=== PATIENT | male | born 1975 | race Caucasian/White ===

== ENCOUNTER 2023-09-08 08:45 | Inpatient (IN) | payer OTHER ==
[2023-09-08 09:07] VITALS: BMI 30.9
[2023-09-08] MEDS ORDERED: SODIUM CHLORIDE 0.9% 1000 ML INFUS.BAG IV ONE (09:34)
[2023-09-08] MEDS ORDERED: ACETAMINOPHEN 1000 MG/100 ML BAG IVPB ONE (09:34)
[2023-09-08] MEDS ORDERED: ACETAMINOPHEN INJECTION 100 ML IVPB ONE ×2 (10:00→23:24)
[2023-09-08 10:32] LABS: PH,URINE 8.5 (5.0-8.0); URINE APPEARANCE CLEAR; URINE BILIRUBIN NEGATIVE (NEGATIVE); URINE COLOR YELLOW; URINE GLUCOSE (UA) NEGATIVE (NEGATIVE); URINE KETONE NEGATIVE (NEGATIVE); URINE LEUK ESTERASE NEGATIVE (NEGATIVE); URINE NITRITE NEGATIVE (NEGATIVE); URINE PROTEIN NEGATIVE (NEGATIVE); URINE UROBILINOGEN 0.2 mg/dL (0.2-1.0)
[2023-09-08 10:33] LABS: BASO % 0.2 % (0-2.0); EOS % 0.3 % (0-4.5); HEMATOCRIT 39.6 % (35.4-49); HEMOGLOBIN 13.3 GM/dL (11.7-16.9); MCH 28.7 pg (25.7-33.7); MCHC 33.6 g/dl (32.0-35.9); MEAN CELL VOLUME 85.6 fl (80-96); MEAN PLT VOLUME 7.3 fl (7.5-11.1); MONO % 9.7 % (3.8-10.2); NEUT % 78.8 % (42.8-82.8); PLATELET COUNT 250 10^3/uL (134-434); RBC 4.63 M/mm3 (4.00-5.60); RDW 13.8 % (11.9-15.9); WHITE BLOOD COUNT 12.4 K/mm3 (4.0-10.0)
[2023-09-08 11:04] LABS: POTASSIUM 3.6 mmol/L (3.5-5.1)
[2023-09-08 11:06] LABS: CALCIUM 7.9 mg/dL (8.5-10.1)
[2023-09-08 11:08] LABS: ALBUMIN 3.6 g/dl (3.4-5.0); BLOOD UREA NITROGEN 14.4 mg/dL (7-18)
[2023-09-08 11:10] LABS: CREATININE 0.9 mg/dL (0.55-1.3)
[2023-09-08 11:11] LABS: TOT PROT 6.7 g/dl (6.4-8.2)
[2023-09-08 11:13] LABS: BILIRUBIN,TOTAL 0.9 mg/dL (0.2-1)
[2023-09-08] MEDS ORDERED: PIPERACILLIN/TAZOB 2.25 GM 2.25 GM in DEXTROSE 5%-WATER - 50 ML IVPB ONE (14:07)
[2023-09-08] MEDS ORDERED: PIPERACILLIN/TAZOB 2.25 GM 2.25 GM/50 ML BAG IVPB ONE (15:20)
[2023-09-08 15:25] LABS: PROTHROMBIN TIME (PATIENT) 46.2 SEC (9.7-13.0)
[2023-09-08 15:28] LABS: ACTIVATED PTT 55.7 SECONDS (25.2-36.5)
[2023-09-08 15:43] LABS: INR 4.04 (0.83-1.09)
[2023-09-08] MEDS ORDERED: DEXTROSE 5%-0.45% SALINE 1,000 ML IV SCH (17:00)
[2023-09-08] MEDS ORDERED: morphine CARPU-JECT 2 MG/1 ML DISP.SYRIN IVPUSH ONE (18:12)
[2023-09-08] MEDS ORDERED: morphine CARPU-JECT 4 MG/1 ML DISP.SYRIN IVPUSH SCH (18:45)
[2023-09-08] MEDS: ATORVASTATIN CA 10 MG TABLET (FP) PO SCH (22:00)
[2023-09-08] MEDS ORDERED: INSULIN SLIDING SCALE (NOVOLOG) 1 VIAL SQ SCH (22:00)
[2023-09-08] MEDS ORDERED: ATORVASTATIN CA 20 MG TABLET (FP) ONE (22:01)
[2023-09-08] MEDS: INSULIN SLIDING SCALE (NOVOLOG) 1 VIAL SQ SCH (22:11)
[2023-09-08] MEDS: ACETAMINOPHEN 1000 MG/100 ML BAG IVPB PRN (23:31)
[2023-09-09] MEDS: INSULIN SLIDING SCALE (NOVOLOG) 1 VIAL SQ SCH ×4 (06:33→21:11)
[2023-09-09 08:24] LABS: POTASSIUM 3.2 mmol/L (3.5-5.1)
[2023-09-09 08:25] LABS: HEMATOCRIT 37.4 % (35.4-49); HEMOGLOBIN 13.3 GM/dL (11.7-16.9); MCH 29.7 pg (25.7-33.7); MCHC 35.6 g/dl (32.0-35.9); MEAN CELL VOLUME 83.5 fl (80-96); MEAN PLT VOLUME 7.4 fl (7.5-11.1); PLATELET COUNT 228 10^3/uL (134-434); RBC 4.48 M/mm3 (4.00-5.60); RDW 13.6 % (11.9-15.9); WHITE BLOOD COUNT 12.9 K/mm3 (4.0-10.0)
[2023-09-09 08:29] LABS: CALCIUM 7.8 mg/dL (8.5-10.1)
[2023-09-09 08:30] LABS: BLOOD UREA NITROGEN 10.3 mg/dL (7-18); MAGNESIUM 1.8 mg/dL (1.8-2.4)
[2023-09-09 08:33] LABS: CREATININE 0.9 mg/dL (0.55-1.3); PHOSPHOROUS 2.6 mg/dL (2.5-4.9)
[2023-09-09 08:38] LABS: INR 3.26 (0.83-1.09); PROTHROMBIN TIME (PATIENT) 37.4 SEC (9.7-13.0)
[2023-09-09] MEDS: ACETAMINOPHEN 1000 MG/100 ML BAG IVPB PRN (16:37)
[2023-09-09] MEDS ORDERED: ACETAMINOPHEN 1000 MG/100 ML BAG IVPB PRN (20:49)
[2023-09-09] MEDS: ATORVASTATIN CA 10 MG TABLET (FP) PO SCH (21:11)
[2023-09-10] MEDS: INSULIN SLIDING SCALE (NOVOLOG) 1 VIAL SQ SCH ×4 (06:11→21:02)
[2023-09-10] MEDS ORDERED: PIPERACILLIN/TAZOB 3.375 GM 3.375 GM in DEXTROSE 5%-WATER - 50 ML IVPB SCH (10:00)
[2023-09-10 10:26] LABS: BASO % 0.1 % (0-2.0); EOS % 0.1 % (0-4.5); HEMOGLOBIN 12.8 GM/dL (11.7-16.9); LYMPH % 7.6 % (8-40); MCH 28.9 pg (25.7-33.7); MCHC 34.6 g/dl (32.0-35.9); MEAN CELL VOLUME 83.5 fl (80-96); MEAN PLT VOLUME 7.6 fl (7.5-11.1); MONO % 5.1 % (3.8-10.2); NEUT % 87.1 % (42.8-82.8); PLATELET COUNT 227 10^3/uL (134-434); RBC 4.43 M/mm3 (4.00-5.60); WHITE BLOOD COUNT 14.1 K/mm3 (4.0-10.0)
[2023-09-10 10:35] LABS: INR 1.78 (0.83-1.09); PROTHROMBIN TIME (PATIENT) 20.5 SEC (9.7-13.0)
[2023-09-10 10:53] LABS: POTASSIUM 3.1 mmol/L (3.5-5.1)
[2023-09-10 10:56] LABS: BLOOD UREA NITROGEN 11.1 mg/dL (7-18); CALCIUM 7.7 mg/dL (8.5-10.1)
[2023-09-10 10:59] LABS: CREATININE 1.1 mg/dL (0.55-1.3)
[2023-09-10 11:00] LABS: BILIRUBIN,TOTAL 2.3 mg/dL (0.2-1); TOT PROT 6.1 g/dl (6.4-8.2)
[2023-09-10 11:10] LABS: ALBUMIN 2.8 g/dl (3.4-5.0)
[2023-09-10 11:20] LABS: ERYTHROCYTE SEDIMENTATION RATE 89 mm/hr (0-10)
[2023-09-10] MEDS: KCL 10 MEQ IVPB 10 MEQ/100 ML INFUS.BAG IVPB SCH ×2 (12:02→12:45)
[2023-09-10] MEDS ORDERED: POTASSIUM CHLORIDE TABS 10 MEQ TABLET.ER (FP) PO ONE (12:45)
[2023-09-10] MEDS: PIPERACILLIN/TAZOB 3.375 GM 3.375 GM in DEXTROSE 5%-WATER - 50 ML IVPB SCH (17:16)
[2023-09-10] MEDS: ATORVASTATIN CA 10 MG TABLET (FP) PO SCH (21:02)
[2023-09-10] MEDS ORDERED: ACETAMINOPHEN 1000 MG/100 ML BAG IVPB ONE (21:24)
[2023-09-11] MEDS: PIPERACILLIN/TAZOB 3.375 GM 3.375 GM in DEXTROSE 5%-WATER - 50 ML IVPB SCH ×3 (02:13→17:50)
[2023-09-11] MEDS: INSULIN SLIDING SCALE (NOVOLOG) 1 VIAL SQ SCH ×4 (09:10→22:01)
[2023-09-11] MEDS ORDERED: BUPIVACAINE HCL/PF 0.25% (2.5MG/ML) 10 ML VIAL ONE (09:14)
[2023-09-11] MEDS ORDERED: BUPIVACAINE HCL/PF 0.25% (2.5MG/ML) 10 ML VIAL IJ ONE ×2 (09:34→10:14)
[2023-09-11] MEDS ORDERED: PIPERACILLIN/TAZOBACTAM 3.375 GM VIAL IVPB ONE ×3 (09:34→09:58)
[2023-09-11] MEDS ORDERED: ACETAMINOPHEN INJECTION 100 ML IVPB ONE (09:41)
[2023-09-11] MEDS ORDERED: HEPARIN NA (PORCINE) 5,000 UNITS/ML 1ML VIAL ONE (09:41)
[2023-09-11 09:58] LABS: BASO % 0.3 % (0-2.0); EOS % 0.3 % (0-4.5); HEMATOCRIT 38.4 % (35.4-49); LYMPH % 8.9 % (8-40); MCH 28.7 pg (25.7-33.7); MCHC 33.9 g/dl (32.0-35.9); MEAN CELL VOLUME 84.5 fl (80-96); MEAN PLT VOLUME 7.6 fl (7.5-11.1); MONO % 6.8 % (3.8-10.2); NEUT % 83.7 % (42.8-82.8); PLATELET COUNT 256 10^3/uL (134-434); RBC 4.54 M/mm3 (4.00-5.60); RDW 13.5 % (11.9-15.9); WHITE BLOOD COUNT 11.6 K/mm3 (4.0-10.0)
[2023-09-11 09:59] LABS: INR 1.44 (0.83-1.09); PROTHROMBIN TIME (PATIENT) 16.6 SEC (9.7-13.0)
[2023-09-11 10:33] LABS: POTASSIUM 3.5 mmol/L (3.5-5.1)
[2023-09-11 10:37] LABS: ALBUMIN 2.8 g/dl (3.4-5.0); BLOOD UREA NITROGEN 11.4 mg/dL (7-18); CALCIUM 8.2 mg/dL (8.5-10.1)
[2023-09-11 10:40] LABS: CREATININE 0.9 mg/dL (0.55-1.3)
[2023-09-11 10:42] LABS: BILIRUBIN,TOTAL 2.3 mg/dL (0.2-1); TOT PROT 6.6 g/dl (6.4-8.2)
[2023-09-11] MEDS ORDERED: LACTATED RINGERS SOLUTION 1,000 ML IV SCH (11:15)
[2023-09-11] MEDS ORDERED: FENTANYL CITRATE/PF 50 MCG/ML VIAL ONE (11:55)
[2023-09-11] MEDS: ACETAMINOPHEN 1000 MG/100 ML BAG IVPB SCH ×2 (16:56→22:01)
[2023-09-11] MEDS: WARFARIN NA 5 MG TABLET PO SCH (17:51)
[2023-09-11] MEDS: ATORVASTATIN CA 10 MG TABLET (FP) PO SCH (22:03)
[2023-09-12] MEDS: PIPERACILLIN/TAZOB 3.375 GM 3.375 GM in DEXTROSE 5%-WATER - 50 ML IVPB SCH ×3 (01:06→17:39)
[2023-09-12] MEDS: ACETAMINOPHEN 1000 MG/100 ML BAG IVPB SCH ×2 (04:20→11:49)
[2023-09-12] MEDS: INSULIN SLIDING SCALE (NOVOLOG) 1 VIAL SQ SCH ×3 (06:07→16:34)
[2023-09-12] MEDS: oxyCODONE HCL 5 MG TABLET PO PRN ×3 (09:16→21:20)
[2023-09-12 10:24] LABS: BASO % 0.2 % (0-2.0); HEMATOCRIT 33.8 % (35.4-49); HEMOGLOBIN 11.6 GM/dL (11.7-16.9); LYMPH % 8.3 % (8-40); MCH 28.9 pg (25.7-33.7); MCHC 34.4 g/dl (32.0-35.9); MEAN PLT VOLUME 7.7 fl (7.5-11.1); NEUT % 86.5 % (42.8-82.8); PLATELET COUNT 270 10^3/uL (134-434); RBC 4.02 M/mm3 (4.00-5.60); RDW 13.6 % (11.9-15.9); WHITE BLOOD COUNT 10.8 K/mm3 (4.0-10.0)
[2023-09-12 10:25] LABS: INR 1.63 (0.83-1.09); PROTHROMBIN TIME (PATIENT) 18.8 SEC (9.7-13.0)
[2023-09-12 10:42] LABS: POTASSIUM 3.7 mmol/L (3.5-5.1)
[2023-09-12 11:05] LABS: CALCIUM 8.1 mg/dL (8.5-10.1)
[2023-09-12 11:06] LABS: ALBUMIN 2.3 g/dl (3.4-5.0)
[2023-09-12 11:10] LABS: CREATININE 0.8 mg/dL (0.55-1.3)
[2023-09-12 11:11] LABS: BILIRUBIN,TOTAL 1.1 mg/dL (0.2-1)
[2023-09-12] MEDS: WARFARIN NA 5 MG TABLET PO SCH (17:39)
[2023-09-12] MEDS ORDERED: SIMETHICONE 80 MG TAB.CHEW (FP) PO ONE (21:09)
[2023-09-12] MEDS: ATORVASTATIN CA 10 MG TABLET (FP) PO SCH (21:20)
[2023-09-13] MEDS: INSULIN SLIDING SCALE (NOVOLOG) 1 VIAL SQ SCH ×5 (01:10→21:34)
[2023-09-13] MEDS: PIPERACILLIN/TAZOB 3.375 GM 3.375 GM in DEXTROSE 5%-WATER - 50 ML IVPB SCH ×3 (01:17→17:16)
[2023-09-13 08:45] LABS: BASO % 0.1 % (0-2.0); EOS % 0.6 % (0-4.5); HEMATOCRIT 34.8 % (35.4-49); HEMOGLOBIN 11.6 GM/dL (11.7-16.9); LYMPH % 23.1 % (8-40); MCH 28.5 pg (25.7-33.7); MCHC 33.5 g/dl (32.0-35.9); MEAN CELL VOLUME 85.1 fl (80-96); MEAN PLT VOLUME 6.8 fl (7.5-11.1); MONO % 9.5 % (3.8-10.2); NEUT % 66.7 % (42.8-82.8); PLATELET COUNT 325 10^3/uL (134-434); RBC 4.08 M/mm3 (4.00-5.60); RDW 14.2 % (11.9-15.9); WHITE BLOOD COUNT 10.2 K/mm3 (4.0-10.0)
[2023-09-13 08:50] LABS: INR 2.35 (0.83-1.09)
[2023-09-13 09:03] LABS: POTASSIUM 3.6 mmol/L (3.5-5.1)
[2023-09-13 09:06] LABS: CALCIUM 7.8 mg/dL (8.5-10.1)
[2023-09-13 09:07] LABS: ALBUMIN 2.3 g/dl (3.4-5.0); BLOOD UREA NITROGEN 15.7 mg/dL (7-18)
[2023-09-13 09:12] LABS: BILIRUBIN,TOTAL 0.5 mg/dL (0.2-1); TOT PROT 5.9 g/dl (6.4-8.2)
[2023-09-13] MEDS: WARFARIN NA 5 MG TABLET PO SCH (17:17)
[2023-09-13] MEDS ORDERED: POLYETHYLENE GLYCOL (HEALTHYLAX) 3350 17 GM PACKET PO SCH (18:30)
[2023-09-13] MEDS: ATORVASTATIN CA 10 MG TABLET (FP) PO SCH ×2 (21:33→21:47)
[2023-09-14] MEDS: PIPERACILLIN/TAZOB 3.375 GM 3.375 GM in DEXTROSE 5%-WATER - 50 ML IVPB SCH ×3 (01:14→18:42)
[2023-09-14] MEDS: INSULIN SLIDING SCALE (NOVOLOG) 1 VIAL SQ SCH ×4 (07:04→21:47)
[2023-09-14] MEDS ORDERED: SODIUM CHLORIDE 500 ML IV STA (11:06)
[2023-09-14 11:14] LABS: HEMATOCRIT 39.9 % (35.4-49); HEMOGLOBIN 13.4 GM/dL (11.7-16.9); INR 2.89 (0.83-1.09); MCH 28.7 pg (25.7-33.7); MCHC 33.6 g/dl (32.0-35.9); MEAN CELL VOLUME 85.3 fl (80-96); MEAN PLT VOLUME 6.9 fl (7.5-11.1); PLATELET COUNT 383 10^3/uL (134-434); PROTHROMBIN TIME (PATIENT) 33.2 SEC (9.7-13.0); RBC 4.68 M/mm3 (4.00-5.60); RDW 14.3 % (11.9-15.9); WHITE BLOOD COUNT 9.6 K/mm3 (4.0-10.0)
[2023-09-14] MEDS ORDERED: SODIUM CHLORIDE 1,000 ML IV SCH (11:15)
[2023-09-14 11:35] LABS: POTASSIUM 3.6 mmol/L (3.5-5.1)
[2023-09-14 11:41] LABS: ALBUMIN 2.6 g/dl (3.4-5.0); BLOOD UREA NITROGEN 16.2 mg/dL (7-18); CALCIUM 8.2 mg/dL (8.5-10.1); MAGNESIUM 2.2 mg/dL (1.8-2.4)
[2023-09-14 11:42] LABS: PHOSPHOROUS 3.1 mg/dL (2.5-4.9)
[2023-09-14 11:46] LABS: BILIRUBIN,TOTAL 0.5 mg/dL (0.2-1); TOT PROT 6.5 g/dl (6.4-8.2)
[2023-09-14 12:21] LABS: ANISOCYTOSIS 0; HELMET CELLS 0; HOWELL-JOLLY BODIES 0; MACROCYTOSIS 0; OVALOCYTE 0; ROULEAU 0; SICKELED CELLS 0; TARGET CELLS 0; TEAR DROP CELLS 0; TOXIC GRANULATION 0
[2023-09-14] MEDS: WARFARIN NA 5 MG TABLET PO SCH (18:42)
[2023-09-14] MEDS: ATORVASTATIN CA 10 MG TABLET (FP) PO SCH (21:46)
[2023-09-15] MEDS: PIPERACILLIN/TAZOB 3.375 GM 3.375 GM in DEXTROSE 5%-WATER - 50 ML IVPB SCH ×2 (01:12→09:31)
[2023-09-15] MEDS: INSULIN SLIDING SCALE (NOVOLOG) 1 VIAL SQ SCH ×2 (06:31→11:55)
[2023-09-15 09:03] VITALS: BP 113/74; PULSE 74; RESP 19; TEMP 98.9
[2023-09-15 12:38] LABS: HEMATOCRIT 43.4 % (35.4-49); HEMOGLOBIN 14.6 GM/dL (11.7-16.9); MCH 28.9 pg (25.7-33.7); MCHC 33.7 g/dl (32.0-35.9); MEAN CELL VOLUME 85.8 fl (80-96); MEAN PLT VOLUME 6.9 fl (7.5-11.1); PLATELET COUNT 506 10^3/uL (134-434); RBC 5.06 M/mm3 (4.00-5.60); RDW 14.3 % (11.9-15.9); WHITE BLOOD COUNT 10.8 K/mm3 (4.0-10.0)
[2023-09-15 12:40] LABS: INR 3.34 (0.83-1.09); PROTHROMBIN TIME (PATIENT) 38.3 SEC (9.7-13.0)
[2023-09-15 12:51] LABS: POTASSIUM 3.8 mmol/L (3.5-5.1)
[2023-09-15 12:55] LABS: ALBUMIN 2.8 g/dl (3.4-5.0); CALCIUM 8.3 mg/dL (8.5-10.1)
[2023-09-15 12:56] LABS: BLOOD UREA NITROGEN 15.3 mg/dL (7-18)
[2023-09-15 12:58] LABS: BILIRUBIN,DIRECT 0.3 mg/dL (0.0-0.2)
[2023-09-15 13:00] LABS: BILIRUBIN,TOTAL 0.9 mg/dL (0.2-1); TOT PROT 7.2 g/dl (6.4-8.2)
[2023-09-15 14:12] LABS: ANISOCYTOSIS 2+; MACROCYTOSIS 0
[2023-09-15] MEDS ORDERED: AMOX TR/POT CLAV 875MG/125MG TABLETS (FP) PO SCH (17:30)
== END 2023-09-15 14:53 | disposition home or self-care (01) | DRG 225 ==
LOC: JER 08:45 → JERBED 14:49 → J5S 09-09 03:35
PROVIDERS: ADMIT Internal Medicine; ATTEND Internal Medicine
PROC: 0DTJ4ZZ Resection of Appendix, Percutaneous Endoscopic Approach (ICD-10-PCS; principal; 2023-09-11 19:15)
DX: K35.32 Acute appendicitis with perforation, localized peritonitis, and gangrene, without abscess (principal); E78.5 Hyperlipidemia, unspecified; E11.9 Type 2 diabetes mellitus without complications; I10 Essential (primary) hypertension; R50.9 Fever, unspecified; Z86.718 Personal history of other venous thrombosis and embolism; Z79.01 Long term (current) use of anticoagulants; B17.9 Acute viral hepatitis, unspecified
CPT/HCPCS: 36415; 74177-TC; 76705-TC; 80048; 80053; 80076; 81003; 82150; 82962; 83605; 83690; 83735; 84100; 85025; 85610; 85651; 85730; 86140; 86850; 86900; 86901; 87040; 87070; 87075; 87205; 87635; 88304-TC; 93005; 93010; 94760; 99285-25; J1644; Q9967

== ENCOUNTER 2024-09-14 17:42 | Emergency (ER) | payer OTHER ==
[2024-09-14 17:50] VITALS: BP 127/68; PULSE 86; RESP 18; TEMP 98.2; BMI 31.1
[2024-09-14] MEDS ORDERED: ACETAMINOPHEN 325 MG TABLET (FP) ONE (18:36)
[2024-09-14] MEDS: ACETAMINOPHEN 500 MG TABLET (FP) PO ONE (18:46)
== END 2024-09-14 19:23 | disposition home or self-care (01) ==
LOC: JER 17:42
DX: M79.10 Myalgia, unspecified site (principal)
CPT/HCPCS: 99283-25